=== PATIENT | female | born 1965 | race Asian ===

== ENCOUNTER 2020-02-09 14:40 | Emergency (ER) | payer BC ==
[~2020-02-09] VITALS: Ht 152.4 cm; Wt 53.1 kg
[2020-02-09 14:40] VITALS: BP_SYST 114
[2020-02-09 15:51] VITALS: BP_SYST 114
== END 2020-02-09 15:56 | disposition home or self-care (01) ==
LOC: SED 14:40
DX: S92.352A Displaced fracture of fifth metatarsal bone, left foot, initial encounter for closed fracture (principal); W10.8XXA Fall (on) (from) other stairs and steps, initial encounter; Y93.89 Activity, other specified; Y92.89 Other specified places as the place of occurrence of the external cause; Y99.8 Other external cause status
CPT/HCPCS: 73564; 99284